=== PATIENT | female | born 1985 | race Caucasian/White ===

== ENCOUNTER → 2017-04-30 | Outpatient (CLI) | payer OTHER ==
[~2017-04-30] MED LIST: ACHD5005 PO; ALB0.5V INH; ALBU17AE23; BUDE90AE IH; BUDE90AE2 IH; CEPH500C PO; CETI10TA17 PO; FORM12CA; FRS325T PO; HYDR1TAB PO; IBP600T1 PO; IPRA3AMP11 INH; Ibuprofen PO; LEVA1.25 IH; MELO7.5T PO; MNTL10T; MNTL10T PO; NF-PULMINH; NF-XOP-HFA INH; PNV1TABL9 PO; PRCD5U PO; PRD20T PO; PREN1TAB19 PO; VALA500T4
[2017-04-30 23:06] LABS: IGE DETAIL 56.8 IU/mL
[2017-05-01 07:01] LABS: INT IGE See Footnote
== END ==
LOC: LAB 09:11
PROVIDERS: ATTEND Nurse Practitioner Family
DX: J45.909 Unspecified asthma, uncomplicated (principal)
CPT/HCPCS: 36415; 82785; 86003

== ENCOUNTER → 2017-05-06 | Outpatient (CLI) | payer OTHER | LOC: RT 08:22 | PROVIDERS: ATTEND Nurse Practitioner Family | DX: J45.909 Unspecified asthma, uncomplicated (principal); R06.00 Dyspnea, unspecified | CPT/HCPCS: 94060; 94726; 94729 ==